=== PATIENT | female | born 1975 | race Caucasian/White ===

== ENCOUNTER 2017-05-13 07:16 | Emergency (ER) | payer BC ==
[2017-05-13 07:34] VITALS: BP 112/81
--- NOTE | 2017-05-13 07:44 | UC ---
Eye Complaint HPI - HPI Summary HPI Summary: 42 year old F with left eye complaint. Has had watery eye for about 1 week . no purulent d/c, itchy and watery. no FB. no contacts. no trauma. no vision changes. no double vision. no fireworks. no fever. no other concerns but has had some post nasal drip. has baby shower next week and does not want to be sick - History of Current Complaint Chief Complaint: UCEye Stated Complaint: EYE IRRITATION Time Seen by Provider: 05/13/17 07:38 Hx Obtained From: Patient Hx Last Menstrual Period: 05/01/17 Onset/Duration: Gradual Onset Pain Intensity: 0 Associated Signs And Symptoms: Positive: Drainage (Clear) - Allergies/Home Medications Allergies/Adverse Reactions: Allergies Allergy/AdvReac Type Severity Reaction Status Date / Time No Known Allergies Allergy Verified 05/13/17 07:28 Home Medications: Home Medications Control Pill 1 tab PO DAILY 05/13/17 [History] PMH/Surg Hx/FS Hx/Imm Hx Previously Healthy: Yes - Surgical History Surgical History: None - Family History Known Family History: Positive: None - Social History Occupation: Employed Full-time Alcohol Use: Rare Substance Use Type: None Smoking Status (MU): Never Smoked Tobacco Review of Systems Eyes: Drainage Is Patient Immunocompromised?: No All Other Systems Reviewed And Are Negative: Yes Physical Exam Triage Information Reviewed: Yes Appearance: Well-Appearing, No Pain Distress, Well-Nourished Vital Signs: Initial Vital Signs Temp 98.5 F 05/13/17 07:26 Pulse 74 05/13/17 07:26 Resp 16 05/13/17 07:26 BP 112/81 05/13/17 07:26 Pulse Ox 100 05/13/17 07:26 Vital Signs Reviewed: Yes Eyes: Positive: Conjunctiva Clear, Discharge - clear ENT Exam: Normal Dental Exam: Normal Respiratory: Positive: No respiratory distress Neurological Exam: Normal Psychological Exam: Normal Skin Exam: Normal Eye Complaint Course/Dx - Differential Dx/Diagnosis Differential Diagnosis/HQI/PQRI: Conjunctivitis, Uveitis Provider Diagnoses: Allergic conjunctivitis left eye Discharge - Discharge Plan Condition: Good Disposition: HOME Referrals: No Primary Care Phys,NOPCP [Primary Care Provider] -
== END 2017-05-13 07:56 | disposition home or self-care (01) ==
LOC: UCCORT 07:16
DX: H10.12 Acute atopic conjunctivitis, left eye (principal)
CPT/HCPCS: 99212; G0463